=== PATIENT | female | born 1960 | race African-American/Black ===

== ENCOUNTER 2020-07-13 06:28 | Observation (INO) | payer OTHER ==
[~2020-07-13] VITALS: Ht 167.6 cm; Wt 202.3 kg
[2020-07-13 06:53] LABS: ABSOLUTE NEUTROPHILS 3.6 thou/uL (1.4-8.2); BASOPHILS 0.6 % (0.0-2.0); HEMATOCRIT 41.3 % (37.0-47.0); HEMOGLOBIN 13.4 gm/dL (12.0-15.0); LYMPHOCYTES 33.6 % (24.0-44.0); MCH 31.8 pg (26.0-34.0); MCHC 32.4 g/dL (28.0-37.0); MCV 98.2 fL (80.0-100.0); MONOCYTES 8.6 % (1.0-8.0); PLATELET COUNT 168 thou/uL (150-400); POLYS 57.2 % (36.0-66.0); RDW 13.4 % (10.5-14.5); WBC 6.2 thou/uL (4.0-11.0)
[2020-07-13 06:55] LABS: CREATININE 1.2 mg/dL (0.6-1.0); MAGNESIUM 1.7 mg/dL (1.8-2.4); POTASSIUM 3.5 mmol/L (3.5-5.1)
[2020-07-13 07:15] LABS: APTT 27.5 Seconds (24.5-32.8); PROTIME 10.7 Seconds (9.3-11.4)
--- NOTE | 2020-07-13 07:32 | EKG ---
[place] [address] [facility] [place] [address] ELECTROCARDIOGRAM REPORT Name: AURELIO FRANCIS Room #: REG Lm#: [id number] Admission: 07/13/20 Attend Phys: Discharge: Date of : 62 Report #: [id number] [facility] ED Test Date: 2020-07-13 Test Time: 06:30:36 Pat Name: AURELIO FRANCIS Department: Room: Gender: F Counsellors: KATI : 1960 Requested By: Suzanne Hightower Order Number: [id number] MD: Curtis Chery Measurements Intervals [place] Rate: 113 P: 49 [place]: 148 QRS: 27 QRSD: 80 T: 35 QT: 325 QTc: 446 Interpretive Statements Sinus tachycardia Baseline wander in lead(s) V3 Compared to ECG 03/17/1999 14:34:00 Sinus rhythm no longer present Sinus arrhythmia no longer present Electronically Signed On 07-13-2020 7:31:51 [employer] by Curtis Chery [email or web address] <ELECTRONICALLY SIGNED> By: Curtis Chery MD, [facility] 07/13/2031 9 9 Curtis Chery MD, FACC /EPI
[2020-07-13 09:47] LABS: CHOLESTEROL 180 mg/dL (<200); HDL CHOLESTEROL 38 mg/dL (>40); LDL CHOLESTEROL 125 mg/dL (<100); TC:HDL 4.7 Ratio (Not establshd); TRIGLYCERIDE 85 mg/dL (<150); VLDL 17 mg/dL (<40)
[2020-07-13 12:10] VITALS: BP 87/56
--- NOTE | 2020-07-13 14:36 | NUR ---
60 year old female with hx of SVT, HTN, Elevated Cholesterol, DM, Morbid Obesity who presents to ER after episode of SVT and still having chest pain. Pt hx of SVT and taking Cardizem BID but since Sunday she has had 4 episodes of SVT. Admitted with: SVT, Morbid obesity, HX f PE/DVT, DM2. Cardiology consult and resume Cardizem, PO Eliquis, R/O DVT, Echo. NOTE: COVID POSITIVE per Antigen test on 07-13-20. Per ED notes patient is A&O x4. Per the record admitted VIA EMS and lives independently. Lists her sister Elana Burton as next of kin at [phone]. Patient presents with [facility] primary and [place] [employer] secondary. CM to follow for discharge needs.
[2020-07-13 15:46] LABS: ALBUMIN 2.8 g/dL (3.4-5.0); DIRECT BILIRUBIN < 0.1 mg/dL (<0.1-0.2); SGOT 37 U/L (15-37); SGPT 31 U/L (14-59); TOTAL BILIRUBIN 0.3 mg/dL (0.2-1.0); TOTAL PROTEIN 6.4 g/dL (6.4-8.2)
[2020-07-13 17:05] VITALS: BP 103/70
[2020-07-13 17:25] VITALS: BP 120/66
[2020-07-13] MEDS ORDERED: FAMOTIDINE 20 M20 MG PO (18:24)
[2020-07-13] MEDS ORDERED: DILTIAZEM ER120 MG PO (18:24)
[2020-07-13] MEDS ORDERED: METFORMIN HCL500 MG PO (18:26)
[2020-07-13] MEDS ORDERED: FUROSEMIDE 20 M20 M1 PO (18:26)
--- NOTE | 2020-07-13 18:47 | NUR ---
PATIENT ADMIT TO UNIT AT 1745 FROM ER. A/O X4. ON RA. NSR ON MONITOR. PATIENT C/O STERNUM PAIN. GENERLIAED EDEMA. WILL KEEP MONITOR.
[2020-07-13 19:29] VITALS: BP 139/73
[2020-07-13 23:42] VITALS: BP 108/64
[2020-07-14 03:34] VITALS: BP 112/59
--- NOTE | 2020-07-14 03:35 | NUR ---
Pt. slept fair during the night. C/O intermittent sharp chest pain which she reported has been going on all day and has had since she had episode of SVT. Offered to give ntg SL but didn't feel comfortable taking it since she reported a really low BP last time she had it. She requested for hydrocodone which she takes at home and verbalized relief. No further c/o chest pain. She has maintained SR per tele with occ PVC. Tolerating room air well , denies being short of breath. Up with assist to bathroom using her cane. She reported feeling weak and gets dizzy at times. Voided per bathroom and had one loose bm. Bed alarm on for safety. Refused SCD's. Cont. on enhanced precaution , afebrile.
[2020-07-14] MEDS ORDERED: METOPROLOL SUCC25 M1 PO (09:12)
[2020-07-14] MEDS ORDERED: ELIQUIS5 MG PO (09:12)
[2020-07-14] MEDS ORDERED: PREDNISONE 5 MG5 M1 PO (09:14)
[2020-07-14 10:08] VITALS: BP 112/59
--- NOTE | 2020-07-14 10:58 | NUR ---
ASSUMED PATIENT CARE AT 0700. A/O X4. NSR ON MONITOR. HR UP WHEN WALK. DENIES CHEST PAIN. WILL DC TO HOME SOON.
[2020-07-14 11:13] LABS: CALCIUM 8.7 mg/dL (8.5-10.1); CREATININE 0.9 mg/dL (0.6-1.0); TOTAL BILIRUBIN 0.4 mg/dL (0.2-1.0); TOTAL PROTEIN 6.8 g/dL (6.4-8.2)
== END 2020-07-14 11:55 | disposition home or self-care (01) ==
LOC: ER 06:28 → 3W 09:52 → EROBS 09:52 → 3W 09:52
PROVIDERS: Emergency Medicine; Nurse Practitioner Adult Health; ADMIT Hospitalist; ATTEND Hospitalist
DX: U07.1 COVID-19 (principal); I47.1 Supraventricular tachycardia; R07.89 Other chest pain; I10 Essential (primary) hypertension; E11.9 Type 2 diabetes mellitus without complications; E78.5 Hyperlipidemia, unspecified; E87.6 Hypokalemia; E83.42 Hypomagnesemia; E66.01 Morbid (severe) obesity due to excess calories; Z86.718 Personal history of other venous thrombosis and embolism; Z79.82 Long term (current) use of aspirin; Z79.4 Long term (current) use of insulin; Z79.899 Other long term (current) drug therapy; Z68.45 Body mass index [BMI] 70 or greater, adult
CPT/HCPCS: 10879